=== PATIENT | female | born 1990 | race Caucasian/White ===

== ENCOUNTER 2018-04-24 18:00 | Emergency (ER) | payer MEDICAID ==
[~2018-04-24] VITALS: Ht 160 cm; Wt 57.0 kg
[2018-04-24 18:07] VITALS: BP 145/79
[2018-04-24] MEDS ORDERED: SEPTRA DS (18:19)
[2018-04-24] MEDS ORDERED: TYLENOL 3 (18:19)
[2018-04-24] MEDS ORDERED: SULF1TAB48 PO (18:19)
[2018-04-24] MEDS ORDERED: CEPH-569 PO (18:19)
== END 2018-04-24 19:39 | disposition left against medical advice (07) ==
LOC: ER 18:00
DX: Z53.21 Procedure and treatment not carried out due to patient leaving prior to being seen by health care provider (principal)

== ENCOUNTER 2018-10-10 19:08 | Emergency (ER) | payer MEDICAID ==
[~2018-10-10] VITALS: Ht 160 cm; Wt 59.0 kg
[~2018-10-10 19:08] MED LIST: CEPH-569 PO; SEPTRA DS; SULF1TAB48 PO; TYLENOL 3
[2018-10-10 20:13] VITALS: BP 123/76
[2018-10-10 20:23] LABS: CLARITY URINE CLEAR (CLEAR); COLOR URINE YELLOW (YELLOW); KETONES URINE NEGATIVE (NEGATIVE); LEUKOCYTE ESTERASE URINE NEGATIVE (NEGATIVE); NITRITE URINE NEGATIVE (NEGATIVE); OCCULT BLOOD URINE NEGATIVE (NEGATIVE); PROTEIN URINE NEGATIVE (NEGATIVE); SPECIFIC GRAVITY URINE 1.012 (1.005-1.030); UROBILINOGEN URINE 0.2 E.U./dL (0.2-1.0)
[2018-10-10 20:34] LABS: BASOPHILS % 0.8 % (0.0-2.0); EOSINOPHILS % 1.7 % (0.0-5.0); HEMATOCRIT. 33.1 % (36.0-48.0); HEMOGLOBIN. 11.3 g/dL (12.0-16.0); MEAN CORPUSCULAR HEMOGLOBIN 27.4 pg (28.0-32.0); MEAN PLATELET VOLUME 7.3 fl (7.4-10.4); MONOCYTES % 9.5 % (2.0-8.0); PLATELET 323 x1000/uL (130-400); RED BLOOD CELL COUNT 4.14 mill/uL (4.2-5.4)
[2018-10-10 20:42] LABS: PROTHROMBIN TIME 10.7 sec (9.6-11.0)
[2018-10-10 20:47] LABS: CHLORIDE 107 mEq/L (98-107)
[2018-10-10 20:51] LABS: ETHANOL BLOOD < 10 mg/dL
[2018-10-10 20:54] LABS: *AMPHETAMINES SCREEN URINE NEGATIVE (NEGATIVE); *BARBITURATES SCREEN URINE NEGATIVE (NEGATIVE); *COCAINE SCREEN URINE NEGATIVE (NEGATIVE); METHADONE URINE SCREEN NEGATIVE (NEGATIVE); OPIATES URINE SCREEN NEGATIVE (NEGATIVE)
[2018-10-10 20:55] LABS: CANNABINOID URINE SCREEN NEGATIVE (NEGATIVE); PHENCYCLIDINE URINE SCREEN NEGATIVE (NEGATIVE)
[2018-10-10 20:56] LABS: *BENZODIAZEPINES SCREEN URINE NEGATIVE (NEGATIVE)
== END 2018-10-10 23:54 | disposition home or self-care (01) ==
LOC: ER 19:08
DX: S36.118A Other injury of liver, initial encounter (principal); X58.XXXA Exposure to other specified factors, initial encounter; Y93.89 Activity, other specified; Y92.89 Other specified places as the place of occurrence of the external cause; Y99.8 Other external cause status
CPT/HCPCS: 36415; 76705; 80305; 80307; 80320; 80329; 81025; 99284; G0480

== ENCOUNTER 2020-01-14 08:07 | Emergency (ER) | payer MEDICAID ==
[~2020-01-14] VITALS: Ht 172.7 cm; Wt 83.0 kg
[2020-01-14 09:15] LABS: BASOPHILS % 0.7 % (0.0-2.0); EOSINOPHILS % 0.5 % (0.0-5.0); HEMATOCRIT. 29.1 % (36.0-48.0); HEMOGLOBIN. 9.3 g/dL (12.0-16.0); LYMPHOCYTES % 24.8 % (20.0-50.0); MEAN CORPUSCULAR HEMOGLOBIN 21.2 pg (28.0-32.0); MEAN CORPUSCULAR VOLUME 66.6 fL (81.0-99.0); MEAN PLATELET VOLUME 7.4 fl (7.4-10.4); MONOCYTES % 6.2 % (2.0-8.0); NEUTROPHILS % 67.8 % (40.0-76.0); PLATELET 368 x1000/uL (130-400); RED BLOOD CELL COUNT 4.37 mill/uL (4.2-5.4); RED CELL DISTRIBUTION WIDTH 18.9 % (11.6-14.6)
[2020-01-14 09:22] LABS: CHLORIDE 106 mEq/L (98-107)
[2020-01-14 09:27] LABS: ETHANOL BLOOD < 10 mg/dL
[2020-01-14 09:36] LABS: PLATELET ESTIMATE NORMAL
[2020-01-14 10:25] LABS: HCG SCREEN NEGATIVE
[2020-01-14] MEDS ORDERED: BACITRACIN 15GM TUBE TOP ONE (12:30)
[2020-01-14] MEDS ORDERED: LORAZEPAM 2MG/ML CPJ IM PRN (17:15)
[2020-01-14] MEDS ORDERED: OLANZAPINE 10 MG/VIAL IM ONE (17:15)
[2020-01-15] MEDS ORDERED: LORAZEPAM 2MG/ML CPJ IM ONE (18:15)
[2020-01-15] MEDS ORDERED: OLANZAPINE 10 MG/VIAL IM ONE (18:15)
[2020-01-16] MEDS ORDERED: LORAZEPAM 2MG/ML CPJ IM STA (13:09)
[2020-01-16] MEDS ORDERED: OLANZAPINE 10 MG/VIAL IM ONE (13:15)
[2020-01-16] MEDS ORDERED: LORAZEPAM 2MG/ML CPJ IM ONE (18:30)
[2020-01-16] MEDS ORDERED: HALOPERIDOL LACTATE 5MG/ML VIAL IM ONE (18:30)
[2020-01-17 15:14] LABS: *BARBITURATES SCREEN URINE NEGATIVE (NEGATIVE); *BENZODIAZEPINES SCREEN URINE NEGATIVE (NEGATIVE); *COCAINE SCREEN URINE NEGATIVE (NEGATIVE)
[2020-01-17 15:18] LABS: METHADONE URINE SCREEN NEGATIVE (NEGATIVE); OPIATES URINE SCREEN NEGATIVE (NEGATIVE)
[2020-01-17 15:19] LABS: CANNABINOID URINE SCREEN NEGATIVE (NEGATIVE); PHENCYCLIDINE URINE SCREEN NEGATIVE (NEGATIVE)
[2020-01-17 15:33] LABS: *AMPHETAMINES SCREEN URINE PRESUMTIVE POSITIVE (NEGATIVE)
[2020-01-17] MEDS ORDERED: LORAZEPAM 2MG/ML CPJ IM ONE ×2 (21:45→22:30)
[2020-01-17] MEDS ORDERED: HALOPERIDOL LACTATE 5MG/ML VIAL IM ONE ×2 (21:45→22:30)
[2020-01-18 17:42] VITALS: BP 104/61
== END 2020-01-18 18:36 | disposition home or self-care (01) ==
LOC: ER 08:07
DX: S61.512A Laceration without foreign body of left wrist, initial encounter (principal); R45.851 Suicidal ideations; Z20.828 Contact with and (suspected) exposure to other viral communicable diseases; I49.9 Cardiac arrhythmia, unspecified; F15.20 Other stimulant dependence, uncomplicated; X58.XXXA Exposure to other specified factors, initial encounter; Y93.89 Activity, other specified; Y92.89 Other specified places as the place of occurrence of the external cause; Y99.8 Other external cause status
CPT/HCPCS: 36415; 71045; 80053; 80307; 80320; 80329; 82962; 84703; 85025; 87635; 93005; 96372; 99285; C9803; J1630; J2060; J3490; G0480